=== PATIENT | female | born 1965 | race Caucasian/White ===

== ENCOUNTER 2016-09-13 06:00 | Day surgery (SDC) | payer BC ==
--- NOTE | ~2016-09-13 | OP ---
Record Of Operation [facility] [address] [place]. [address] NAME: LAURA MATHEW : 63 STATUS : [facility] PAT#: [id number] AGE: 51 ADM/REG DATE : 09/13/16 MR#: [id number] REPORT SERV DATE: 09/13/16 DICTATED BY: ADAM MULTANI DATE: 09/13/16 REPORT STATUS : Draft TRANSCRIBED BY: MODNiada DATE: 09/13/16 DATE OF PROCEDURE: 09/13/2016 PREOPERATIVE DIAGNOSIS: Bilateral chronic maxillary sinusitis with deviated nasal septum and right selina bullosa. POSTOPERATIVE DIAGNOSIS: Bilateral chronic maxillary sinusitis with deviated nasal septum and right selina bullosa. PROCEDURES: Bilateral endoscopic maxillary antrostomy with tissue removal with septoplasty and endoscopic excision of right selina bullosa. SURGEON: Adam Multani M.D. ANESTHESIA: General endotracheal. ESTIMATED BLOOD LOSS: 20 mL. INTRAOPERATIVE FLUIDS: 700 mL crystalloid. INTRAOPERATIVE FINDINGS: Moderate to severe left-sided nasal septal deflection, limiting access to the left middle meatus. Moderate right selina bullosa. Secondary sinus ostium posterior to the natural maxillary sinus ostium on the right side. Mucopurulent drainage within the base of the left maxillary sinus. A small amount of the lamina papyracea was removed on the left side in the process of creating the antrostomy; however, the underlying periorbita remained intact with no exposure of periorbital fat. DESCRIPTION OF PROCEDURE: The patient was identified in the holding, transported to the operating room, placed on the operating room table in the supine position. Following induction of anesthesia, the patient was intubated without difficulty. Afrin-soaked pledgets were placed to the nose, bilaterally. The septum was injected with 1% lidocaine with 1:100,000 epinephrine. The right selina bullosa was similarly injected. The patient was then prepped and draped in preparation for her nasal surgery. A rigid nasal endoscopy was performed which revealed the above findings. The right middle turbinate was incised along the inferior and leading edge. The lateral aspect of the selina bullosa was removed. This did provide marked improvement and visualization of the right uncinate process. The uncinate process was then injected with 1% lidocaine with 1:100,000 epinephrine. The uncinate process was removed. Additional bone and soft tissue were removed with the use of the sinus shaving instrumentation. As noted above, there was a secondary sinus ostium identified posterior to the natural maxillary sinus ostium. The intervening soft tissue was removed creating a single opening into the right maxillary sinus. The sinus was examined with the 30-degree scope with no significant drainage or debris identified within the base of the right maxillary sinus. At this point, a septoplasty was performed to gain access to the left middle meatus. A Kaleb incision was created in the left side of the nose. A mucoperichondrial flap was developed and extended posteriorly over the bony cartilaginous junction. An incision was created through the quadrangular cartilage, leaving a greater Record Of Operation [place] [id number] [place]. [address] NAME: LAURA MATHEW : 63 STATUS : [facility] PAT#: [id number] AGE: 51 ADM/REG DATE : 09/13/16 MR#: [id number] REPORT SERV DATE: 09/13/16 DICTATED BY: ADAM MULTANI DATE: 09/13/16 REPORT STATUS : Draft TRANSCRIBED BY: STELLA DATE: 09/13/16 than 1 cm caudal strut. A mucoperichondrial flap was then developed in a similar fashion in the right side of the nose. A strip of deflected cartilage was removed from the floor of the nose, removing a width of approximately 8 mm of cartilage from this area. The quadrangular cartilage was then divided from the bony nasal septum, leaving a strong dorsal attachment. There was a sharp deformity of the bony nasal septum to the left side at the junction of the perpendicular plate of the ethmoid and the vomer which was resected. There was a persistent spur of bone along the floor of the nose related to hypertrophic bone along the nasal crest which was removed with the use of an osteotome. The flaps were placed and the septum was noted to be in the midline. The Elsa incision was closed with interrupted 4-0 chromic suture. A quilting stitch was placed. A rigid nasal endoscopy was then repeated on the left side which demonstrated marked improvement in access to the left middle meatus. The uncinate process was injected with 1% lidocaine with 1:100,000 epinephrine. The uncinate process was removed. In the process of removing the uncinate process, a small amount of bone was removed from the lamina papyracea, anteriorly. This did allow for exposure of the underlying periorbita; however, the periorbita remained intact with no exposure of periorbital fat. The surgery was performed with care taken to avoid injury to this area, and the periorbita did remain completely intact throughout the operative procedure. Additional bone and soft tissue was removed for exposure of the natural maxillary sinus ostium. The ostium was enlarged removing tissue posteriorly and inferiorly. There was mucopurulent drainage within the base of the maxillary sinus which was collected in the Lukens trap and sent for routine culture. There was inflammatory tissue within the base of the maxillary sinus which was partially debrided. Examination of the sinus with the 30 and 70 degree scopes revealed no residual drainage or debris within the base of the sinus. At the end of the operative procedure, there was no significant bleeding. Rolled Gelfoam was placed into the middle meatus, bilaterally. The inferior turbinates were outfractured, bilaterally. Ramirez splints were applied to the nose. The patient was subsequently awakened from anesthesia, extubated in the operating room, transported to the recovery room in good condition. The patient tolerated the procedure well. SPECIMENS: Included nasal septal bone and cartilage with bilateral maxillary sinus contents and aspirate from the left maxillary sinus for routine culture. COMPLICATIONS: Complications during the procedure included exposure of periorbita on the left side with no anticipated deficit from this bone removal. SALOME/STELLA Adam uMltani M.D. / [id number] CC: Divya Wright D.O.
[~2016-09-13 06:00] MED LIST: *DENIES; [UNRECOGNIZED DRUG - OTHER]; [UNRECOGNIZED DRUG - OTHER]; [UNRECOGNIZED DRUG - REMARK]
== END 2016-09-13 14:43 | disposition home or self-care (01) ==
LOC: SDC 06:00
PROVIDERS: Otolaryngology
PROC: 099Q4ZZ Drainage of Right Maxillary Sinus, Percutaneous Endoscopic Approach (ICD-10-PCS; 2016-09-13)
PROC: 09SM0ZZ Reposition Nasal Septum, Open Approach (ICD-10-PCS; 2016-09-13)
PROC: 09BL8ZZ Excision of Nasal Turbinate, Via Natural or Artificial Opening Endoscopic (ICD-10-PCS; 2016-09-13)
PROC: 099R4ZZ Drainage of Left Maxillary Sinus, Percutaneous Endoscopic Approach (ICD-10-PCS; principal; 2016-09-13 07:15)
DX: J31.0 Chronic rhinitis (principal); J32.0 Chronic maxillary sinusitis; J34.2 Deviated nasal septum; R23.8 Other skin changes; F17.210 Nicotine dependence, cigarettes, uncomplicated; Z90.710 Acquired absence of both cervix and uterus; Z90.49 Acquired absence of other specified parts of digestive tract; Z98.890 Other specified postprocedural states
CPT/HCPCS: 87015; 87070; 87075; 87077; 87102; 87116; 87186; 88305; A9270-GY; J0295; J0690; J2250; J2405; J2710; J3010